=== PATIENT | female | born 1970 | race Caucasian/White ===

== ENCOUNTER 2018-05-19 07:41 | Outpatient (CLI) | payer OTHER ==
[~2018-05-19 07:41] MED LIST: CEFTIN500 MG PO; TRAM1TAB98 PO
== END 2018-05-19 19:14 | disposition home or self-care (01) ==
LOC: LAB 07:41
DX: E89.0 Postprocedural hypothyroidism (principal); E05.90 Thyrotoxicosis, unspecified without thyrotoxic crisis or storm; E04.8 Other specified nontoxic goiter; N18.3 Chronic kidney disease, stage 3 (moderate); E11.21 Type 2 diabetes mellitus with diabetic nephropathy; D63.1 Anemia in chronic kidney disease; N30.00 Acute cystitis without hematuria; E03.8 Other specified hypothyroidism

== ENCOUNTER 2018-05-19 08:39 | Outpatient (CLI) | payer OTHER | END 2018-05-19 08:44 | disposition home or self-care (01) | LOC: SONOGRAMA 08:39 → MAMO-SONO 09:15 | DX: R10.84 Generalized abdominal pain (principal); N18.3 Chronic kidney disease, stage 3 (moderate); R31.29 Other microscopic hematuria ==

== ENCOUNTER 2018-09-09 09:20 | Outpatient (CLI) | payer OTHER | END 2018-09-09 09:31 | disposition home or self-care (01) | LOC: LAB 09:20 | DX: D64.89 Other specified anemias (principal); E11.8 Type 2 diabetes mellitus with unspecified complications; E78.2 Mixed hyperlipidemia; I10 Essential (primary) hypertension; E03.8 Other specified hypothyroidism ==

== ENCOUNTER 2018-09-22 10:06 | Outpatient (CLI) | payer OTHER | END 2018-09-22 10:12 | disposition home or self-care (01) | LOC: MAMO-SONO 10:06 | DX: N64.89 Other specified disorders of breast (principal); Z12.31 Encounter for screening mammogram for malignant neoplasm of breast ==

== ENCOUNTER 2019-02-08 08:09 | Outpatient (CLI) | payer OTHER | END 2019-02-08 08:22 | disposition home or self-care (01) | LOC: LAB 08:09 | DX: D64.89 Other specified anemias (principal); E11.9 Type 2 diabetes mellitus without complications; E78.49 Other hyperlipidemia; E03.8 Other specified hypothyroidism; R29.898 Other symptoms and signs involving the musculoskeletal system; E55.9 Vitamin D deficiency, unspecified; N18.3 Chronic kidney disease, stage 3 (moderate); D63.1 Anemia in chronic kidney disease; N30.00 Acute cystitis without hematuria ==

== ENCOUNTER 2020-03-13 07:11 | Outpatient (CLI) | payer OTHER | END 2020-03-13 07:31 | disposition home or self-care (01) | LOC: LAB 07:11 | DX: R94.5 Abnormal results of liver function studies (principal); E03.0 Congenital hypothyroidism with diffuse goiter; Z20.828 Contact with and (suspected) exposure to other viral communicable diseases ==

== ENCOUNTER 2020-03-13 08:05 | Outpatient (CLI) | payer OTHER | END 2020-03-13 08:23 | disposition home or self-care (01) | LOC: MAMO-SONO 08:05 | PROVIDERS: ATTEND Obstetrics & Gynecology Obstetrics | DX: Z12.31 Encounter for screening mammogram for malignant neoplasm of breast (principal); N64.4 Mastodynia ==

== ENCOUNTER 2020-04-11 06:53 | Outpatient (CLI) | payer OTHER | END 2020-04-11 07:02 | disposition home or self-care (01) | LOC: LAB 06:53 | PROVIDERS: ATTEND Internal Medicine Sports Medicine | DX: D64.89 Other specified anemias (principal); E11.9 Type 2 diabetes mellitus without complications; E78.2 Mixed hyperlipidemia; E03.8 Other specified hypothyroidism; I10 Essential (primary) hypertension ==

== ENCOUNTER → 2020-08-30 | Outpatient (CLI) | payer OTHER | END | disposition home or self-care (01) | LOC: LAB 07:30 | PROVIDERS: ATTEND Specialist/Technologist, Other Nephrology | DX: N92.5 Other specified irregular menstruation (principal); N95.1 Menopausal and female climacteric states ==

== ENCOUNTER 2020-12-12 07:28 | Outpatient (CLI) | payer OTHER | END 2020-12-12 09:05 | disposition home or self-care (01) | LOC: LAB 07:28 | PROVIDERS: ATTEND Internal Medicine Sports Medicine | DX: R29.898 Other symptoms and signs involving the musculoskeletal system (principal); D64.9 Anemia, unspecified; E11.9 Type 2 diabetes mellitus without complications; E78.2 Mixed hyperlipidemia; E78.5 Hyperlipidemia, unspecified; K76.89 Other specified diseases of liver; E03.8 Other specified hypothyroidism; E55.9 Vitamin D deficiency, unspecified ==

== ENCOUNTER → 2021-03-09 10:34 | Outpatient (CLI) | payer OTHER | END | disposition home or self-care (01) | LOC: LAB 10:34 | PROVIDERS: ATTEND Specialist/Technologist, Other Nephrology | DX: E03.8 Other specified hypothyroidism (principal); N18.30 Chronic kidney disease, stage 3 unspecified; E11.21 Type 2 diabetes mellitus with diabetic nephropathy; D63.1 Anemia in chronic kidney disease; N30.00 Acute cystitis without hematuria; E78.49 Other hyperlipidemia; I12.9 Hypertensive chronic kidney disease with stage 1 through stage 4 chronic kidney disease, or unspecified chronic kidney disease ==

== ENCOUNTER 2021-03-18 07:39 | Outpatient (CLI) | payer OTHER | END 2021-03-18 08:56 | disposition home or self-care (01) | LOC: MAMO-SONO 07:39 | PROVIDERS: ATTEND Internal Medicine Sports Medicine | DX: N63.24 Unspecified lump in the left breast, lower inner quadrant (principal); N63.14 Unspecified lump in the right breast, lower inner quadrant; Z12.31 Encounter for screening mammogram for malignant neoplasm of breast ==

== ENCOUNTER 2021-03-28 08:01 | Outpatient (CLI) | payer OTHER | END 2021-03-28 08:09 | disposition home or self-care (01) | LOC: LAB 08:01 | PROVIDERS: ATTEND Internal Medicine Sports Medicine | DX: E03.8 Other specified hypothyroidism (principal); E04.8 Other specified nontoxic goiter; E04.1 Nontoxic single thyroid nodule ==

== ENCOUNTER 2021-04-11 07:36 | Outpatient (CLI) | payer OTHER | END 2021-04-11 07:44 | disposition home or self-care (01) | LOC: LAB 07:36 | PROVIDERS: ATTEND Internal Medicine Sports Medicine | DX: N30.00 Acute cystitis without hematuria (principal) ==

== ENCOUNTER 2021-09-12 08:21 | Outpatient (CLI) | payer OTHER | END 2021-09-12 08:42 | disposition home or self-care (01) | LOC: LAB 08:21 | PROVIDERS: ATTEND Internal Medicine Sports Medicine | DX: D64.9 Anemia, unspecified (principal); E11.9 Type 2 diabetes mellitus without complications; E78.2 Mixed hyperlipidemia; I10 Essential (primary) hypertension; E03.8 Other specified hypothyroidism ==

== ENCOUNTER 2021-09-25 07:33 | Outpatient (CLI) | payer OTHER | END 2021-09-25 07:54 | disposition home or self-care (01) | LOC: SONOGRAMA 07:33 | DX: N18.30 Chronic kidney disease, stage 3 unspecified (principal); R31.9 Hematuria, unspecified ==

== ENCOUNTER 2021-12-19 08:25 | Outpatient (CLI) | payer OTHER | END 2021-12-19 08:30 | disposition home or self-care (01) | LOC: LAB 08:25 | PROVIDERS: ATTEND Specialist/Technologist, Other Nephrology | DX: N18.30 Chronic kidney disease, stage 3 unspecified (principal); E11.21 Type 2 diabetes mellitus with diabetic nephropathy; D63.1 Anemia in chronic kidney disease; N30.00 Acute cystitis without hematuria; E03.9 Hypothyroidism, unspecified; E78.49 Other hyperlipidemia; I12.9 Hypertensive chronic kidney disease with stage 1 through stage 4 chronic kidney disease, or unspecified chronic kidney disease ==

== ENCOUNTER 2022-04-10 08:00 | Outpatient (CLI) | payer OTHER | END 2022-04-10 08:10 | disposition home or self-care (01) | LOC: LAB 08:00 | PROVIDERS: ATTEND Internal Medicine Sports Medicine | DX: D64.9 Anemia, unspecified (principal); E11.9 Type 2 diabetes mellitus without complications; E78.2 Mixed hyperlipidemia; I10 Essential (primary) hypertension; E03.8 Other specified hypothyroidism; E55.9 Vitamin D deficiency, unspecified ==

== ENCOUNTER → 2022-10-23 07:20 | Outpatient (CLI) | payer OTHER | END | disposition home or self-care (01) | LOC: LAB 07:20 | PROVIDERS: ATTEND Internal Medicine Sports Medicine | DX: D64.9 Anemia, unspecified (principal); E11.9 Type 2 diabetes mellitus without complications; E78.2 Mixed hyperlipidemia; I10 Essential (primary) hypertension; E03.8 Other specified hypothyroidism; E55.9 Vitamin D deficiency, unspecified ==

== ENCOUNTER 2022-10-27 07:28 | Outpatient (CLI) | payer OTHER | END 2022-10-27 07:46 | disposition home or self-care (01) | LOC: MAMO-SONO 07:28 | PROVIDERS: ATTEND Internal Medicine Sports Medicine | DX: Z12.31 Encounter for screening mammogram for malignant neoplasm of breast (principal) ==

== ENCOUNTER 2023-02-12 07:44 | Outpatient (CLI) | payer OTHER | END 2023-02-12 23:00 | disposition home or self-care (01) | LOC: LAB 07:44 | PROVIDERS: ATTEND Obstetrics & Gynecology Obstetrics | DX: I10 Essential (primary) hypertension (principal); E03.9 Hypothyroidism, unspecified; E78.2 Mixed hyperlipidemia; N80.30 Endometriosis of pelvic peritoneum, unspecified; N95.1 Menopausal and female climacteric states; E55.9 Vitamin D deficiency, unspecified; E34.9 Endocrine disorder, unspecified ==

== ENCOUNTER 2023-09-14 07:31 | Outpatient (CLI) | payer OTHER | END 2023-09-14 07:43 | disposition home or self-care (01) | LOC: SONOGRAMA 07:31 | PROVIDERS: ATTEND Specialist/Technologist, Other Nephrology | DX: M79.641 Pain in right hand (principal); M79.642 Pain in left hand; R10.9 Unspecified abdominal pain; R31.9 Hematuria, unspecified ==

== ENCOUNTER 2023-10-29 07:22 | Outpatient (CLI) | payer OTHER ==
[2023-10-29 09:16] LABS: PH,URINE 5.5 (5.0-8.0); URINE APPEARANCE Clear; URINE BILIRRUBIN Negative (NEGATIVE); URINE BLOOD Negative; URINE COLOR Yellow; URINE GLUCOSE Negative (NEGATIVE); URINE LEUKOCYTE Moderate; URINE NITRATE Negative; URINE PROTEIN Negative (NEGATIVE); URINE UROBILINOGEN 0.2 E.U./dl
[2023-10-29 09:18] LABS: URINE BACTERIA 860.5 uL (0.0-1933); URINE EPITHELIAL CELLS 19.4 uL (0.0-38.8); URINE RBC 5.8 uL (0.0-20.8)
[2023-10-29 09:36] LABS: HEMATOCRIT 38.9 % (36.0-45.00); HEMOGLOBIN 12.5 g/dL (12.0-15.00); MEAN CELL VOLUME 84.9 fL (80.00-100.00); MEAN CORPUSCULAR HEMOGLOBIN 27.3 pg (27.00-32.0); MEAN CORPUSCULAR HGB CONC 32.1 g/dl (32.0-36.0); PLATELET COUNT 208 K/uL (150-450); RED BLOOD COUNT 4.58 M/uL (4.00-6.00); RED CELL DISTRIBUTION WIDTH 13.5 % (11.5-14.5)
[2023-10-29 10:37] LABS: ALBUMIN 3.8 gm/dL (3.4-5.0); BILIRUBIN TOTAL 0.95 mg/dL (0.3-1.2); CALCIUM 9.4 mg/dL (8.5-10.1); CHOL HDL RATIO 3.9 (0-5.0); CREATININE SERUM 0.62 mg/dL (0.55-1.02); GFR 100.69; GLOBULINA 3.7 G/DL (2.4-3.5); PHOSPHOROUS 3.2 mg/dL (2.5-4.9); POTASSIUM 4.34 mEq/L (3.5-5.1); T4 FREE 0.98 NG/ML (0.76-1.46); TOTAL PROTEIN 7.5 gm/dL (6.4-8.2); TSH 2.02 uIU/mL (0.358-3.74)
[2023-10-29 11:00] LABS: URIC ACID 4.6 mg/dL (2.5-7.5)
== END 2023-10-29 07:24 | disposition home or self-care (01) ==
LOC: LAB 07:22
PROVIDERS: ATTEND Specialist/Technologist, Other Nephrology
DX: D64.9 Anemia, unspecified (principal); E11.9 Type 2 diabetes mellitus without complications; E78.2 Mixed hyperlipidemia; I10 Essential (primary) hypertension; E03.8 Other specified hypothyroidism; E55.9 Vitamin D deficiency, unspecified; N18.30 Chronic kidney disease, stage 3 unspecified; E11.21 Type 2 diabetes mellitus with diabetic nephropathy; D63.1 Anemia in chronic kidney disease; N30.00 Acute cystitis without hematuria; E78.5 Hyperlipidemia, unspecified; E03.9 Hypothyroidism, unspecified

== ENCOUNTER → 2024-05-05 07:20 | Outpatient (CLI) | payer OTHER ==
[2024-05-05 08:53] LABS: HEMATOCRIT 37.6 % (36.0-45.00); HEMOGLOBIN 12.3 g/dL (12.0-15.00); MEAN CELL VOLUME 86.1 fL (80.00-100.00); MEAN CORPUSCULAR HEMOGLOBIN 28.1 pg (27.00-32.0); MEAN CORPUSCULAR HGB CONC 32.7 g/dl (32.0-36.0); PLATELET COUNT 180 K/uL (150-450); RED BLOOD COUNT 4.36 M/uL (4.00-6.00); RED CELL DISTRIBUTION WIDTH 13.8 % (11.5-14.5)
[2024-05-05 08:55] LABS: PH,URINE 5.5 (5.0-8.0); URINE APPEARANCE Clear; URINE BILIRRUBIN Negative (NEGATIVE); URINE BLOOD Negative; URINE COLOR Yellow; URINE GLUCOSE Negative (NEGATIVE); URINE KETONE Negative (NEGATIVE); URINE LEUKOCYTE Small; URINE NITRATE Negative; URINE PROTEIN Negative (NEGATIVE); URINE UROBILINOGEN 0.2 E.U./dl
[2024-05-05 09:00] LABS: URINE BACTERIA 357.7 uL (0.0-1933); URINE EPITHELIAL CELLS 13.7 uL (0.0-38.8); URINE RBC 5.1 uL (0.0-20.8); URINE WBC 124.3 uL (0.0-23.2)
[2024-05-05 09:45] LABS: ALBUMIN 3.7 gm/dL (3.4-5.0); BILIRUBIN TOTAL 0.66 mg/dL (0.3-1.2); CALCIUM 9.1 mg/dL (8.5-10.1); CHOL HDL RATIO 3.8 (0-5.0); CREATININE SERUM 0.58 mg/dL (0.55-1.02); GFR 108.33; GLOBULINA 3.6 G/DL (2.4-3.5); POTASSIUM 3.94 mEq/L (3.5-5.1); T4 FREE 0.7 NG/ML (0.76-1.46); TOTAL PROTEIN 7.3 gm/dL (6.4-8.2)
[2024-05-05 10:12] LABS: TSH 5.1 uIU/mL (0.358-3.74)
== END | disposition home or self-care (01) ==
LOC: LAB 07:20
PROVIDERS: ATTEND Internal Medicine Sports Medicine
DX: D64.9 Anemia, unspecified (principal); E11.9 Type 2 diabetes mellitus without complications; E78.2 Mixed hyperlipidemia; I10 Essential (primary) hypertension; E03.8 Other specified hypothyroidism; Z23 Encounter for immunization

== ENCOUNTER → 2024-11-05 06:26 | Outpatient (CLI) | payer OTHER ==
[2024-11-05 07:20] LABS: HEMATOCRIT 36.3 % (36.0-45.00); MEAN CELL VOLUME 84.6 fL (80.00-100.00); MEAN CORPUSCULAR HEMOGLOBIN 27.9 pg (27.00-32.0); MEAN CORPUSCULAR HGB CONC 32.9 g/dl (32.0-36.0); PLATELET COUNT 221 K/uL (150-450); RED BLOOD COUNT 4.29 M/uL (4.00-6.00); RED CELL DISTRIBUTION WIDTH 14.2 % (11.5-14.5)
[2024-11-05 07:50] LABS: URINE APPEARANCE Cloudy; URINE BACTERIA 594.8 uL (0.0-1933); URINE BILIRRUBIN Negative (NEGATIVE); URINE BLOOD NHT; URINE COLOR Yellow; URINE EPITHELIAL CELLS 37.8 uL (0.0-38.8); URINE GLUCOSE Negative (NEGATIVE); URINE KETONE Negative (NEGATIVE); URINE LEUKOCYTE Moderate; URINE NITRATE Negative; URINE PROTEIN Negative (NEGATIVE); URINE RBC 16.6 uL (0.0-20.8); URINE UROBILINOGEN 0.2 E.U./dl; URINE WBC 391.2 uL (0.0-23.2)
[2024-11-05 08:00] LABS: URIC ACID 4.5 mg/dL (2.5-7.5)
[2024-11-05 08:10] LABS: URINE CAST 0.88 uL (0.0-1.40); URINE YEAST MODERATE /hpf
[2024-11-05 08:16] LABS: ALBUMIN 3.6 gm/dL (3.4-5.0); BILIRUBIN TOTAL 0.54 mg/dL (0.3-1.2); CALCIUM 9.2 mg/dL (8.5-10.1); CHOL HDL RATIO 3.8 (0-5.0); CREATININE SERUM 0.59 mg/dL (0.55-1.02); GFR 106.22; GLOBULINA 3.6 G/DL (2.4-3.5); PHOSPHOROUS 3.5 mg/dL (2.5-4.9); POTASSIUM 3.86 mEq/L (3.5-5.1); T4 FREE 0.85 NG/ML (0.76-1.46); TOTAL PROTEIN 7.2 gm/dL (6.4-8.2); TSH 4.47 uIU/mL (0.358-3.74)
== END | disposition home or self-care (01) ==
LOC: LAB 06:26
PROVIDERS: ATTEND Internal Medicine Sports Medicine
DX: D64.9 Anemia, unspecified (principal); E11.9 Type 2 diabetes mellitus without complications; E03.8 Other specified hypothyroidism; E55.9 Vitamin D deficiency, unspecified; E59 Dietary selenium deficiency; E78.2 Mixed hyperlipidemia; I10 Essential (primary) hypertension; N18.30 Chronic kidney disease, stage 3 unspecified; E11.21 Type 2 diabetes mellitus with diabetic nephropathy; D63.1 Anemia in chronic kidney disease; E78.5 Hyperlipidemia, unspecified; N30.00 Acute cystitis without hematuria; E03.9 Hypothyroidism, unspecified

== ENCOUNTER 2024-11-14 07:05 | Outpatient (CLI) | payer OTHER | END 2024-11-14 07:14 | disposition home or self-care (01) | LOC: MAMO-SONO 07:05 | PROVIDERS: ATTEND Internal Medicine Sports Medicine | DX: Z12.39 Encounter for other screening for malignant neoplasm of breast (principal); Z12.31 Encounter for screening mammogram for malignant neoplasm of breast ==

== ENCOUNTER 2025-01-26 08:15 | Outpatient (CLI) | payer OTHER ==
[2025-01-26 09:53] LABS: T4 FREE 1.14 NG/ML (0.76-1.46); TSH 0.493 uIU/mL (0.358-3.74)
== END 2025-01-26 08:24 | disposition home or self-care (01) ==
LOC: LAB 08:15
PROVIDERS: ATTEND Internal Medicine Sports Medicine
DX: E03.9 Hypothyroidism, unspecified (principal); E04.1 Nontoxic single thyroid nodule

== ENCOUNTER 2025-04-02 07:11 | Outpatient (CLI) | payer OTHER | END 2025-04-02 07:37 | disposition home or self-care (01) | LOC: SONOGRAMA 07:11 | DX: R22.1 Localized swelling, mass and lump, neck (principal); M41.24 Other idiopathic scoliosis, thoracic region; M99.01 Segmental and somatic dysfunction of cervical region; M99.02 Segmental and somatic dysfunction of thoracic region; M99.03 Segmental and somatic dysfunction of lumbar region ==

== ENCOUNTER 2025-04-13 07:23 | Outpatient (CLI) | payer OTHER ==
[2025-04-13 08:53] LABS: URINE APPEARANCE Clear; URINE BILIRRUBIN Negative (NEGATIVE); URINE BLOOD Negative; URINE COLOR Yellow; URINE GLUCOSE Negative (NEGATIVE); URINE KETONE Negative (NEGATIVE); URINE LEUKOCYTE Moderate; URINE NITRATE Negative; URINE PROTEIN Negative (NEGATIVE); URINE UROBILINOGEN 0.2 E.U./dl
[2025-04-13 08:57] LABS: BASO % 0.8 % (0.1-1.2); EOS # 0.10 (0.04-0.54); EOS % 1.6 % (0.7-7.0); LYMPH # 3.11 (1.18-3.74); LYMPH % 50.2 % (19.3-53.1); MEAN PLATELET VOLUME 12.80 fl (9.4-12.4); MONO # 0.40 (0.24-0.82); MONO % 6.5 % (4.7-12.5); NEUT # 2.52 (1.56-6.13); NEUT % 40.7 % (34.0-71.1); RED CELL DISTRIBUTION WIDTH 12.3 % (11.6-14.4); URINE BACTERIA 69.5 uL (0.0-1933); URINE EPITHELIAL CELLS 13.8 uL (0.0-38.8); URINE RBC 7.1 uL (0.0-20.8); URINE WBC 151.9 uL (0.0-23.2)
[2025-04-13 09:50] LABS: URINE CAST 0.29 uL (0.0-1.40)
[2025-04-13 09:51] LABS: ALT/SGPT 67.0 U/L (12-78); AST/SGOT 40.0 U/L (15-37); BILIRUBIN TOTAL 0.91 mg/dL (0.3-1.2); BUN CREA RATIO 27.0 (7.0-25.0); CHOL HDL RATIO 3.2 (0-5.0); CREATININE SERUM 0.48 mg/dL (0.55-1.02); GFR 134.27; GLOBULINA 3.3 G/DL (2.4-3.5); GLUCOSE FASTING 92.0 mg/dL (65-100); HDL 55.0 mg/dl (40-60); LDL 103.0 mg/dl (0-130); OSMOLALITY SERUM 287.0 MOSM/KG (275-295); T4 FREE 1.29 NG/ML (0.76-1.46); VLDL 18.0 (0-39)
[2025-04-13 10:08] LABS: TSH 0.021 uIU/mL (0.358-3.74)
== END 2025-04-13 07:36 | disposition home or self-care (01) ==
LOC: LAB 07:23
DX: E55.9 Vitamin D deficiency, unspecified (principal); D64.9 Anemia, unspecified; E11.9 Type 2 diabetes mellitus without complications; E78.2 Mixed hyperlipidemia; I10 Essential (primary) hypertension; E03.8 Other specified hypothyroidism

== ENCOUNTER 2025-05-04 08:43 | Outpatient (CLI) | payer OTHER ==
[2025-05-04 10:15] LABS: URINE APPEARANCE Clear; URINE BILIRRUBIN Negative (NEGATIVE); URINE BLOOD Trace; URINE COLOR Yellow; URINE GLUCOSE Negative (NEGATIVE); URINE KETONE Negative (NEGATIVE); URINE LEUKOCYTE Large; URINE NITRATE Negative; URINE PROTEIN Trace (NEGATIVE); URINE UROBILINOGEN 0.2 E.U./dl
[2025-05-04 10:17] LABS: URINE BACTERIA 869.9 uL (0.0-1933); URINE EPITHELIAL CELLS 40.6 uL (0.0-38.8); URINE RBC 11.8 uL (0.0-20.8); URINE WBC 438.6 uL (0.0-23.2)
[2025-05-04 10:30] LABS: TYPE CELLS TRANSITIONAL; URINE CAST 0.29 uL (0.0-1.40); URINE YEAST FEW /hpf
== END 2025-05-04 08:51 | disposition home or self-care (01) ==
LOC: LAB 08:43
PROVIDERS: ATTEND Specialist/Technologist, Other Nephrology
DX: N30.00 Acute cystitis without hematuria (principal)